=== PATIENT | male | born 1995 | race Two or more races ===

== ENCOUNTER 2023-05-28 10:56 | Emergency (ER) | payer SELFPAY ==
[~2023-05-28] VITALS: Ht 180.3 cm; Wt 72.0 kg
[2023-05-28 11:27] VITALS: BP 115/57; PULSE 75; RESP 16; TEMP 97.7; O2SAT 97
== END 2023-05-28 12:11 | disposition home or self-care (01) ==
LOC: ER 10:56
DX: R04.0 Epistaxis (principal)